=== PATIENT | female | born 1990 | race Caucasian/White ===

== ENCOUNTER 2017-10-11 11:38 | Emergency (ER) | payer OTHER ==
[~2017-10-11] VITALS: Ht 170.2 cm; Wt 62.0 kg
[2017-10-11 11:44] VITALS: BP 147/82; PULSE 64; RESP 17; TEMP 98.4; O2SAT 100
[2017-10-11 12:00] VITALS: BP 140/80; PULSE 68; RESP 16; TEMP 98.4; O2SAT 98
[2017-10-11] MEDS ORDERED: BUSP30TA PO (12:04)
[2017-10-11] MEDS ORDERED: CARI1CAP PO (12:04)
[2017-10-11] MEDS ORDERED: VENL75TA PO (12:04)
[2017-10-11] MEDS ORDERED: OMEP40CA2 (12:04)
--- NOTE | 2017-10-11 14:45 | PD ---
HPI Chief Complaint: Psychiatric Symptoms Time Seen by Provider: 12:54 Travel History International Travel<30 days: No Contact w/Intl Traveler<30days: No Traveled to known affect area: No History of Present Illness HPI 26-year-old female presents to the emergency department voluntarily for psychiatric evaluation and requesting adjustment of her medications for her bipolar disorder. She has been having suicidal thoughts since Thursday after being arrested. She does admit to trying to trying to cut her right wrist with her earring after being arrested on Thursday. She has history of suicidal thoughts, but no attempts. Does not have a current plan. Denies homicidal ideation. Denies visual or auditory hallucinations. Reports smoking marijuana. Reports trying cocaine in the last month a couple times. Reports drinking more often than normal in the past few weeks. Otherwise admits to drinking socially. Has no emergent medical complaints. Denies chest pain, shortness of breath, abdominal pain, nausea, vomiting, dysuria, change in stool. Her psychiatrist is Dr. Jerez. She takes BuSpar and Effexor. Primary care provider is Dr. Greco. Denies significant past medical history. History of bipolar disorder. Allergies to penicillin and Lamictal. Has no other medical complaints. No other modifying factors or associated signs and symptoms. PFSH Past Medical History ?: Not LMP: 10/03/27 Social History Tobacco Use: No Allergies-Medications Reported Meds & Prescriptions Reported Meds & Active Scripts Active Reported Buspirone (Buspirone HCl) 30 Mg Tab 30 Mg PO BID Vraylar (Cariprazine) 1.5 Mg Cap 1.5 Mg PO DAILY Effexor (Venlafaxine HCl) 75 Mg Tab 75 Mg PO DAILY Omeprazole 40 Mg Cap 40 Mg DAILY Review of Systems Except as stated in HPI: all other systems reviewed are Neg Physical Exam Narrative GENERAL: Well-nourished, well-developed female patient, in no acute distress SKIN: Warm and dry. HEAD: Atraumatic. Normocephalic. EYES: Pupils equal and round. ENT: Mucosa pink and moist. NECK: Supple. Trachea midline. CARDIOVASCULAR: Regular rate and rhythm. No murmur appreciated. RESPIRATORY: No accessory muscle use. Clear to auscultation. Breath sounds equal bilaterally. GASTROINTESTINAL: Abdomen soft, non-tender, nondistended. Hepatic and splenic margins not palpable. Bowel sounds are active 4 quadrants. MUSCULOSKELETAL: No obvious deformities. No clubbing. No cyanosis. No edema. BACK: No CVA tenderness. NEUROLOGICAL: Awake and alert. Oriented 3. No obvious cranial nerve deficits. Motor grossly within normal limits. Normal speech. Moves all extremities. 5/5 strength to all extremities. PSYCHIATRIC: No delusional thought processes. No hallucinations. Data Data Last Documented VS Vital Signs Date Time Temp Pulse Resp B/P (MAP) Pulse Ox O2 Delivery O2 Flow Rate FiO2 10/11/17 12:00 98.4 68 16 140/80 (100) 98 Orders Orders Complete Blood Count With Diff (10/11/17 12:53) Comprehensive Metabolic Panel (10/11/17 12:53) Thyroid Stimulating Hormone (10/11/17 12:53) Psych Screen (10/11/17 12:53) Drug Screen, Random Urine (10/11/17 12:53) Alcohol (Ethanol) (10/11/17 12:53) Salicylates (Aspirin) (10/11/17 12:53) Tylenol (Acetaminophen) (10/11/17 12:53) Diet Regular Basic (10/11/17 Lunch) Labs Laboratory Tests Test 10/11/17 14:13 White Blood Count 7.4 TH/MM3 Red Blood Count 4.25 MIL/MM3 Hemoglobin 13.5 GM/DL Hematocrit 38.0 % Mean Corpuscular Volume 89.4 FL Mean Corpuscular Hemoglobin 31.7 PG Mean Corpuscular Hemoglobin Concent 35.5 % Red Cell Distribution Width 13.8 % Platelet Count 222 TH/MM3 Mean Platelet Volume 8.4 FL Neutrophils (%) (Auto) 45.6 % Lymphocytes (%) (Auto) 43.4 % Monocytes (%) (Auto) 8.6 % Eosinophils (%) (Auto) 1.7 % Basophils (%) (Auto) 0.7 % Neutrophils # (Auto) 3.4 TH/MM3 Lymphocytes # (Auto) 3.2 TH/MM3 Monocytes # (Auto) 0.6 TH/MM3 Eosinophils # (Auto) 0.1 TH/MM3 Basophils # (Auto) 0.0 TH/MM3 CBC Comment DIFF FINAL Differential Comment Salicylates Level LESS THAN 1.7 MG/DL Urine Opiates Screen NEG Urine Barbiturates Screen NEG Urine Amphetamines Screen NEG Urine Benzodiazepines Screen NEG Urine Cocaine Screen NEG Urine Cannabinoids Screen POS MDM Medical Decision Making Medical Screen Exam Complete: Yes Emergency Medical Condition: Yes Medical Record Reviewed: Yes Differential Diagnosis bipolar disorder, medical clearance for psych evaluation, suicidal ideation Narrative Course Patient presents voluntarily. Physical examination and vital signs are essentially unremarkable. Patient has no medical complaints to report. Psych screen has been ordered. If the laboratory results are unremarkable, the patient will be medically cleared for psychiatric evaluation and disposition. Diagnosis Primary Impression: Encounter for psychological evaluation Condition: Stable Daysi Jimenez Oct 11, 2017 14:44
[2017-10-11 14:47] LABS: AUTOMATED NEUTROPHIL # 3.4 TH/MM3 (1.8-7.7); BASOPHIL % 0.7 % (0.0-2.0); EOSINOPHIL # 0.1 TH/MM3 (0-0.4); EOSINOPHIL % 1.7 % (0.0-4.0); HEMOGLOBIN 13.5 GM/DL (11.6-15.3); LYMPH % 43.4 % (9.0-44.0); LYMPHOCYTE # 3.2 TH/MM3 (1.0-4.8); MEAN CELL VOLUME 89.4 FL (80.0-100.0); MEAN CORPUSCULAR HEMOGLOBIN 31.7 PG (27.0-34.0); MEAN CORPUSCULAR HGB CONC 35.5 % (32.0-36.0); MEAN PLATELET VOLUME 8.4 FL (7.0-11.0); MONO % 8.6 % (0.0-8.0); MONOCYTE # 0.6 TH/MM3 (0-0.9); NEUT % 45.6 % (16.0-70.0); PLATELET COUNT 222 TH/MM3 (150-450); RED BLOOD COUNT 4.25 MIL/MM3 (4.00-5.30); RED CELL DISTRIBUTION WIDTH 13.8 % (11.6-17.2); WHITE BLOOD COUNT 7.4 TH/MM3 (4.0-11.0)
[2017-10-11 15:48] LABS: ALBUMIN 3.9 GM/DL (3.4-5.0); ALT (GPT) 22 U/L (10-53); AST (GOT) 11 U/L (15-37); BICARBONATE 25.3 MEQ/L (21.0-32.0); BLOOD UREA NITROGEN 10 MG/DL (7-18); CALCIUM 8.8 MG/DL (8.5-10.1); CHLORIDE 108 MEQ/L (98-107); GLOMERULAR FILTRATION RATE 87 ML/MIN (>89); GLUCOSE,RANDOM 85 MG/DL (74-106); SODIUM (NA) 141 MEQ/L (136-145)
[2017-10-11 15:55] LABS: ALKALINE PHOSPHATASE 71 U/L (45-117); TOTAL BILIRUBIN ADULT 0.2 MG/DL (0.2-1.0); TOTAL PROTEIN 6.8 GM/DL (6.4-8.2)
[2017-10-11 15:56] LABS: ACETAMINOPHEN LESS THAN 2.0 MCG/ML (10.0-30.0)
[2017-10-11 16:46] VITALS: BP 143/79; PULSE 57; RESP 16; TEMP 98.5; O2SAT 99
[2017-10-11 21:49] VITALS: BP 118/67; PULSE 59; RESP 16; TEMP 98.1; O2SAT 99
[2017-10-12 02:15] VITALS: BP 137/76; PULSE 65; RESP 16; TEMP 99; O2SAT 98
[2017-10-12 06:22] VITALS: BP 130/71; PULSE 72; RESP 16; TEMP 99; O2SAT 99
--- NOTE | 2017-10-12 07:32 | PD ---
Physical Exam Time Seen by Provider: 07:[address] River has evaluated patient and cleared the patient for discharge. Data Data Last Documented VS Vital Signs Date Time Temp Pulse Resp B/P (MAP) Pulse Ox O2 Delivery O2 Flow Rate FiO2 10/12/17 06:22 99.0 72 16 130/71 (90) 99 Room Air Orders Orders Complete Blood Count With Diff (10/11/17 12:53) Comprehensive Metabolic Panel (10/11/17 12:53) Thyroid Stimulating Hormone (10/11/17 12:53) Psych Screen (10/11/17 12:53) Drug Screen, Random Urine (10/11/17 12:53) Alcohol (Ethanol) (10/11/17 12:53) Salicylates (Aspirin) (10/11/17 12:53) Tylenol (Acetaminophen) (10/11/17 12:53) Diet Regular Basic (10/11/17 Lunch) Diet Regular Basic (10/11/17 Dinner) Diet Regular Basic (10/12/17 Breakfast) Labs Laboratory Tests Test 10/11/17 14:13 White Blood Count 7.4 TH/MM3 Red Blood Count 4.25 MIL/MM3 Hemoglobin 13.5 GM/DL Hematocrit 38.0 % Mean Corpuscular Volume 89.4 FL Mean Corpuscular Hemoglobin 31.7 PG Mean Corpuscular Hemoglobin Concent 35.5 % Red Cell Distribution Width 13.8 % Platelet Count 222 TH/MM3 Mean Platelet Volume 8.4 FL Neutrophils (%) (Auto) 45.6 % Lymphocytes (%) (Auto) 43.4 % Monocytes (%) (Auto) 8.6 % Eosinophils (%) (Auto) 1.7 % Basophils (%) (Auto) 0.7 % Neutrophils # (Auto) 3.4 TH/MM3 Lymphocytes # (Auto) 3.2 TH/MM3 Monocytes # (Auto) 0.6 TH/MM3 Eosinophils # (Auto) 0.1 TH/MM3 Basophils # (Auto) 0.0 TH/MM3 CBC Comment DIFF FINAL Differential Comment Blood Urea Nitrogen 10 MG/DL Creatinine 0.80 MG/DL Random Glucose 85 MG/DL Total Protein 6.8 GM/DL Albumin 3.9 GM/DL Calcium Level 8.8 MG/DL Alkaline Phosphatase 71 U/L Aspartate Amino Transf (AST/SGOT) 11 U/L Alanine Aminotransferase (ALT/SGPT) 22 U/L Total Bilirubin 0.2 MG/DL Sodium Level 141 MEQ/L Potassium Level 4.6 MEQ/L Chloride Level 108 MEQ/L Carbon Dioxide Level 25.3 MEQ/L Anion Gap 8 MEQ/L Estimat Glomerular Filtration Rate 87 ML/MIN Thyroid Stimulating Hormone 3rd Gen 0.531 uIU/ML Salicylates Level LESS THAN 1.7 MG/DL Urine Opiates Screen NEG Acetaminophen Level LESS THAN 2.0 MCG/ML Urine Barbiturates Screen NEG Urine Amphetamines Screen NEG Urine Benzodiazepines Screen NEG Urine Cocaine Screen NEG Urine Cannabinoids Screen POS Ethyl Alcohol Level LESS THAN 3 MG/DL MDM Supervised Visit with RICHA: No Narrative Course Dr. River has evaluated patient and cleared the patient for discharge. Patient contracts safety. Denies suicidal or homicidal ideations. Patient will be provided community resource packet to /[facility]AN for follow-up. Has friends and family for support. Patient was medically cleared by alternate provider prior to psych screening. Patient has been evaluated by psychiatry and and is now cleared for discharge. Diagnosis Primary Impression: Adjustment disorder with depressed mood Referrals: [facility] (Out patient) [facility] Primary Care Physician Psychiatrist Haydee [facility] Patient Instructions: Depression (ED), General Instructions, Mood Disorders (ED ) Additional Instruction: Contract safety to your self and others Follow-up with psychiatry Follow-up with primary care provider Follow-up with Abimael Lloyd Return to the emergency department immediately with worsening of symptoms Med/Other Pt SpecificInfo: No Change to Meds, No Meds Exist/No RX given Disposition: 01 DISCHARGE HOME Condition: Stable Daysi Jimenez Oct 12, 2017 07:32
--- NOTE | 2017-10-12 13:22 | PD.PSY.CON ---
Provisional Diagnosis Admission Date [place] I. Adjustment disorder with depressed mood, history of bipolar disorder type II, cannabis use disorder [place] II. Deferred [place] III. GERD [place] IV. Recent charges for battery [place] V. 55 History of Present Illness Service Psychiatry Consult Requested By ER Reason for Consult Symptoms of depression Primary Care Physician Ashley Greco MD HPI The patient is a 26-year-old woman, domiciled with her , she is in the process of , she is unemployed at the moment, used to be a teacher, no kids, with self-reported psychiatric history of bipolar 2, cannabis use disorder, no previous psychiatric hospitalizations, no previous suicidal attempts, she does have an episode of self cutting behavior about week ago in the context of being arrested by police, but it was superficial and without SI, establish outpatient psychiatric care with Dr. Jerez, she is in Effexor and BuSpar, medical history of GERD, who presents to the emergency department voluntarily for psychiatric evaluation and requesting adjustment of her medications for her bipolar disorder. She has been having suicidal thoughts since Thursday after being arrested. She does admit to trying to trying to cut her right wrist with her earring after being arrested on Thursday. She has history of suicidal thoughts, but no attempts. Does not have a current plan. Denies homicidal ideation. Denies visual or auditory hallucinations. Reports smoking marijuana. Reports trying cocaine in the last month a couple times. Reports drinking more often than normal in the past few weeks. Otherwise admits to drinking socially. Has no emergent medical complaints. Denies chest pain, shortness of breath, abdominal pain, nausea, vomiting, dysuria, change in stool. Her psychiatrist is Dr. Jerez. She takes BuSpar and Effexor. Primary care provider is Dr. Greco. Denies significant past medical history. History of bipolar disorder. Allergies to penicillin and Lamictal. Has no other medical complaints. No other modifying factors or associated signs and symptoms. On psychiatric evaluation today the patient is found calm, cooperative. The patient reports that the reason she decided to come to the ER is to make sure that she she does not meet any adjustment in her medication. The patient says that she has been taking medications for bipolar 2 for some months now. She mentions that education has been modestly effective. She was arrested last week "her very serious charges, and I have been very depressed, sleeping poorly , very preoccupied and very anxious, and I'm concerned that I might need adjustment in medications". The patient denies suicidal and homicidal ideation , she denies visual and auditory hallucinations. She reports that now she asked herself if reckless behavior that she had in the past in different locations could be related with her underlying psychiatric condition. Patient reports that she is hopeful and faithful that things are can be okay, but she fears with anxiety and the shame of facing and the society. At the moment of my evaluation the patient is logical, coherent, relevant. Patient is subjectively sad, but there is no visible or reported paranoia, delusions, ideas of reference, thought broadcasting, pressured speech, attention deficit, fluctuation of consciousness, cognitive impairment, elevated or euphoric affect , disorganized behavior or thoughts. I have educated the patient about the importance and convenience of discussing with her outpatient psychiatrist potential changes in adjustment in her psychotropic regimen, and the reason is not beneficial to do this st this moment, he was able to verbalize agreement and understanding. The patient reports daily use of marijuana, occasional use of alcohol and cocaine. Review of Systems Constitutional: DENIES: Diaphoretic episodes, Fatigue, Fever, Weight gain, Weight loss, Chills, Dizziness, Change in appetite, Night Sweats Endocrine: DENIES: Abnorml menstrual pattern, Heat/cold intolerance, Polydipsia , Polyuria, Polyphagia Eyes: DENIES: Blurred vision, Diplopia, Eye inflammation, Eye pain, Vision loss , Photosensitivity, Double Vision Ears, nose, mouth, throat: DENIES: Tinnitus, Hearing loss, Vertigo, Nasal discharge, Oral lesions, Throat pain, Hoarseness, Ear Pain, Running Nose, Epistaxis, Sinus Pain, Toothache, Odynophagia Respiratory: DENIES: Apneas, Cough, Snoring, Wheezing, Hemoptysis, Sputum production, Shortness of breath Cardiovascular: DENIES: Chest pain, Palpitations, Syncope, Dyspnea on Exertion , PND, Lower Extremity Edema, Orthopnea, Claudication Gastrointestinal: DENIES: Abdominal pain, Black stools, Bloody stools, Constipation, Diarrhea, Nausea, Vomiting, Difficulty Swallowing, Anorexia Genitourinary: DENIES: Abnormal vaginal bleeding, Dysmenorrhea, Dyspareunia, Sexual dysfunction, Urinary frequency, Urinary incontinence, Urgency, Hematuria , Dysuria, Nocturia, Vaginal discharge Musculoskeletal: DENIES: Joint pain, Muscle aches, Stiffness, Joint Swelling, Back pain, Neck pain Integumentary: DENIES: Abnormal pigmentation, Pruritus, Rash, Nail changes, Breast masses, Breast skin changes, Nipple discharge Hematologic/lymphatic: DENIES: Bruising, Lymphadenopathy Immunologic/allergic: DENIES: Eczema, Urticaria Neurologic: DENIES: Abnormal gait, Headache, Localized weakness, Paresthesias, Seizures, Speech Problems, Tremor, Poor Balance Psychiatric: COMPLAINS OF: Depression, DENIES: Anxiety, Confusion, Mood changes , Hallucinations, Agitation, Suicidal Ideation, Homicidal Ideation, Delusions Past Family Social History Coded Allergies: Penicillins (Verified Allergy, Severe, rash, 10/11/17) lamotrigine (Verified Adverse Reaction, Severe, 10/11/17) Patient states this medication gives her breast pain. Reported Medications Buspirone (Buspirone) 30 Mg Tab, 30 MG PO BID for Anxiety, TAB 0 Refills 10/11/17 Cariprazine (Vraylar) 1.5 Mg Cap, 1.5 MG PO DAILY, #30 CAP 0 Refills 10/11/17 Venlafaxine (Effexor) 75 Mg Tab, 75 MG PO DAILY, #60 TAB 0 Refills 10/11/17 Omeprazole (Omeprazole) 40 Mg Cap, 40 MG DAILY, #30 CAP 0 Refills 10/11/17 Family Psych History She has a brother with depression, her mother had bipolar Social History Patient was born and raised in [place], she is in [facility], she is , but , she used to be employed as a teacher, her highest level of education is a master degree in teaching, Patient's Strengths (min. 2) Family support, good level of education Physical Exam No tremors, no EPS, no psychomotor retardation or agitation Vital Signs Vital Signs Date Time Temp Pulse Resp B/P (MAP) Pulse Ox O2 Delivery O2 Flow Rate FiO2 10/12/17 07:50 10/12/17 06:22 99.0 72 16 99 Room Air I/O 10/12/17 10/12/17 10/13/17 08:00 16:00 00:00 Intake Total 240 ml Balance 240 ml Lab Results Test 10/11/17 14:13 White Blood Count 7.4 TH/MM3 Red Blood Count 4.25 MIL/MM3 Hemoglobin 13.5 GM/DL Hematocrit 38.0 % Mean Corpuscular Volume 89.4 FL Mean Corpuscular Hemoglobin 31.7 PG Mean Corpuscular Hemoglobin Concent 35.5 % Red Cell Distribution Width 13.8 % Platelet Count 222 TH/MM3 Mean Platelet Volume 8.4 FL Neutrophils (%) (Auto) 45.6 % Lymphocytes (%) (Auto) 43.4 % Monocytes (%) (Auto) 8.6 % Eosinophils (%) (Auto) 1.7 % Basophils (%) (Auto) 0.7 % Neutrophils # (Auto) 3.4 TH/MM3 Lymphocytes # (Auto) 3.2 TH/MM3 Monocytes # (Auto) 0.6 TH/MM3 Eosinophils # (Auto) 0.1 TH/MM3 Basophils # (Auto) 0.0 TH/MM3 CBC Comment DIFF FINAL Differential Comment Blood Urea Nitrogen 10 MG/DL Creatinine 0.80 MG/DL Random Glucose 85 MG/DL Total Protein 6.8 GM/DL Albumin 3.9 GM/DL Calcium Level 8.8 MG/DL Alkaline Phosphatase 71 U/L Aspartate Amino Transf (AST/SGOT) 11 U/L Alanine Aminotransferase (ALT/SGPT) 22 U/L Total Bilirubin 0.2 MG/DL Sodium Level 141 MEQ/L Potassium Level 4.6 MEQ/L Chloride Level 108 MEQ/L Carbon Dioxide Level 25.3 MEQ/L Anion Gap 8 MEQ/L Estimat Glomerular Filtration Rate 87 ML/MIN Thyroid Stimulating Hormone 3rd Gen 0.531 uIU/ML Salicylates Level LESS THAN 1.7 MG/DL Urine Opiates Screen NEG Acetaminophen Level LESS THAN 2.0 MCG/ML Urine Barbiturates Screen NEG Urine Amphetamines Screen NEG Urine Benzodiazepines Screen NEG Urine Cocaine Screen NEG Urine Cannabinoids Screen POS Ethyl Alcohol Level LESS THAN 3 MG/DL Mental Status Examination Appearance: Appropriate Consciousness: Alert Orientation: x4 Motor Activity: Normal gait Speech: Unremarkable Language: Adequate Fund of Knowledge: Adequate Attention and Concentration: Adequate Memory: Unremarkable Mood: Sad Affect: Sad Thought Process & Associations: Intact Hallucination Type: None Delusion Type: None Suicidal Ideation: No Suicidal Plan: No Suicidal Intention: No Homicidal Ideation: No Homicidal Plan: No Homicidal Intention: No Insight: Fair Judgment: Impulsive Assessment & Plan Problem List: (1) Adjustment disorder with depressed mood ICD Codes: F43.21 - Adjustment disorder with depressed mood Assessment & Plan: At the moment of the psychiatric evaluation the patient presents symptomatology of mild depression in the context of recent serious "legal charges". She reports sadness, persisting intrusive thoughts, anxiety and preoccupations, poor sleep at night, but she denies hopelessness, anhedonia , helplessness, she denies suicidal ideation, homicidal ideation, visual and auditory hallucinations. During my evaluation the patient does not present any symptomatology that suggests tennille or hypomania, there is no pressured speech, no loosening of associations, no attention deficit, no delusions, no self inflicted is being, disorganized behavior or speech. She does not meet criteria for involuntary psychiatric admission. I have provided an extensive support, motivation and psychoeducation. No medication adjustment recommended at this moment. Continue psychiatric care with outpatient psychiatrist Dr. Sheppard. Assessment & Plan Estimated LOS: Jan Merino MD Oct 12, 2017 13:22
== END 2017-10-12 08:22 | disposition home or self-care (01) ==
LOC: NEPJ 11:38
DX: F43.21 Adjustment disorder with depressed mood (principal); Z79.899 Other long term (current) drug therapy
CPT/HCPCS: 80053; 80307; 84443; 85025; 99283